=== PATIENT | female | born 1955 | race Caucasian/White ===

== ENCOUNTER 2018-12-04 19:16 | Observation (INO) ==
[2018-12-04] MEDS ORDERED: LOPRESSOR IV ONE (19:48)
[2018-12-04] MEDS ORDERED: ASPIRIN PO ONE (19:48)
[2018-12-04 20:05] LABS: BASO# 0.05 X1000 (0.0-0.2); BASO% 0.4 % (0.0-0.8); EOS# 0.09 X1000 (0.0-0.7); EOS% 0.7 % (0.0-10.0); HEMOGLOBIN 13.9 g/dL (12.0-16.0); IMM GRAN# 0.03 X1000 (0.0-0.04); IMM GRAN% 0.2 % (0.0-0.5); LYMPH% 17.3 % (20.5-51.1); MCH 28.3 PG (27-31); MCHC 33.1 g/dL (33-37); MCV 85.5 FL (81-99); MONO# 0.53 X1000 (0.11-0.59); MONO% 4.2 % (1.7-9.3); MPV 10.6 FL (7.4-10.4); NEUT# 9.82 X1000 (1.4-6.5); NEUT% 77.2 % (42.2-75.2); PLT 223 X1000 (130-400); RBC 4.91 XMIL (4.2-5.4); RDW 12.7 % (11.5-14.5); WBC 12.72 X1000 (4.8-10.8)
--- NOTE | 2018-12-04 20:19 | Diag Imaging Result Doc PS360 ---
EXAM: CHEST-2 VIEWS HISTORY: short of breath TECHNIQUE: Chest two views COMPARISON: None. FINDINGS: The lungs are well expanded. The heart is not enlarged. The vessels are not distended. There are no infiltrates. No pleural effusions. IMPRESSION: No acute abnormality. Electronically signed by Vini Broussard 12/04/2018 8:17 PM
[2018-12-04 20:49] LABS: AGAP 21; ALB/GLOB RATIO 1.6; ALBUMIN 4.9 g/dL (3.5-5.0); ALKALINE PHOSPHATASE 117 U/L (32-104); BUN 10 mg/dL (8-22); CHLORIDE 97 mmol/L (98-107); COSMO 282; CREATININE 0.9 mg/dL (0.5-0.9); ESTIMATED GFR > 60; GLUCOSE 202 mg/dL (70-104); GOT 18 U/L (10-30); GPT 22 U/L (10-36); MAGNESIUM 1.6 mg/dL (1.5-2.7); POTASSIUM 4.2 mmol/L (3.5-5.1); SODIUM 139 mmol/L (136-145); TCO2 21 mmol/L (25-35); TOTAL BILIRUBIN 0.57 mg/dL (0.20-1.00)
[2018-12-04] MEDS ORDERED: ROCEPHIN 1 GM in NS 50 ML IV ONE (22:10)
[2018-12-04] MEDS ORDERED: NS 1,000 ML IV ONE ×2 (22:10→23:19)
[2018-12-04] MEDS ORDERED: ZOFRAN IV ONE (22:26)
[2018-12-04 22:29] LABS: URINE SOURCE CLEAN CATCH
[2018-12-04 22:52] LABS: BILIRUBIN URINE NEGATIVE (NEGATIVE); BLOOD URINE NEGATIVE (NEGATIVE); COLOR YELLOW; GLUCOSE URINE 70 mg/dL (NEGATIVE); KETONE URINE TRACE mg/dL (NEGATIVE); LEUKOCYTES URINE NEGATIVE (NEGATIVE); NITRITE URINE NEGATIVE (NEGATIVE); PH URINE 5.5; PROTEIN URINE NEGATIVE (NEGATIVE); SP GRAVITY URINE 1.002; TURBIDITY URINE CLEAR (CLEAR); UR EPITHELIAL CELLS <10 /HPF (<10); URINE BACTERIA NEGATIVE /HPF; URINE RBC <10 /HPF (<10); URINE WBC <10 /HPF (<10); UROBILINOGEN URINE NORMAL (NORMAL)
[2018-12-04] MEDS ORDERED: NITROGLYCERIN SL PRN (23:12)
[2018-12-04] MEDS ORDERED: ZOFRAN IV PRN (23:12)
[2018-12-04] MEDS ORDERED: TYLENOL PO PRN (23:12)
--- NOTE | 2018-12-04 23:14 | PROVIDER DOCUMENTATION ---
This chart was entered by April East Scribe, acting as scribe for Willie Dominguez MD. HPI-General Adult - General Chief Complaint: Flu Symptoms Stated Complaint: CHEST PAIN Time Seen by Provider: 12/04/18 19:25 Source: patient Allergies/Adverse Reactions: Patient Allergies Allergy/AdvReac Type Severity Reaction Status Date / Time No Known Allergies Allergy Verified 12/04/18 20:14 - History of Present Illness -Gen Adult Nature of Presenting Problems: 62 yof c/o dizzy, nauseated, hot sweat, shaky, mild cough starting this am when waking, cp starting 2 hours ago. pt states cp when occurring is pressure and 4/10. no cp in er. pt denies vomiting, fever, and diarrhea. pt has hx of dm, htn, high cholesterol, Mi x2, 3 stents, and chf. pt followed by Dr. Aleman and Dr. Joaquin. pt took all regular htn meds today. Location of Pain/Injury: reports: chest Pain Radiation: reports: no radiation Quality of Pain: reports: pressure Severity: reports: mild Onset/Duration: reports: unsure Timing: reports: gone now Context/Activities at Onset: reports: none Review of Systems - Adult - REVIEW OF SYSTEMS - ADULT Constitutional: reports: no symptoms reported, other (malaise, hot sweat, shaky.). denies: fever Eyes: reports: no symptoms reported Ears, Nose, Mouth & Throat: reports: no symptoms reported Cardiovascular: reports: see HPI, chest pain (pt states pressure is 4/10 and is no longer present in er). denies: heart murmur, poor circulation, syncope Respiratory: reports: see HPI, cough (slight). denies: dyspnea on exertion, shortness of breath, wheezing Gastrointestinal: reports: see HPI, nausea. denies: abdominal pain, diarrhea, vomiting Genitourinary: reports: no symptoms reported Musculoskeletal: reports: no symptoms reported Integumentary: reports: no symptoms reported Neurological: reports: see HPI, dizziness/vertigo. denies: headache/migraines, seizure, slurred speech Psychiatric: reports: no symptoms reported Endocrine: reports: no symptoms reported Hematologic/Lymphatic: reports: no symptoms reported Allergic/Immunologic: reports: no symptoms reported All Other Systems: Reviewed and Negative Past History - Adult - PAST MEDICAL HISTORY-ADULT Review of Records: reports: Old Records Reviewed, Nursing Assessment Review, Medications Reviewed, Social history reviewed & non-contributory. Major Childhood Illnesses: reports: denies history Cardiovascular: reports: denies history Respiratory: reports: denies history Gastrointestinal: reports: denies history Obstetrical/Gynecological: reports: denies history Genitourinary: reports: denies history Musculoskeletal: reports: denies history Neurological: reports: denies history Endocrine/Immune: reports: denies history Other Conditions: reports: denies history - IMMUNIZATION STATUS Childhood Immunizations: See Nurse Assessment Flu Vaccine: See Nurse Assessment - FAMILY HISTORY Family History: reviewed, not pertinent Physical Exam-General - PHYSICAL EXAM-ADULT Initial Vital Signs Reviewed: Yes - CONSTITUTIONAL General Appearance: alert, mild distress. negative: lethargic, slow to respond, combative - EYES Eyes: PERRL/EOMI - HEAD, EARS, NOSE, MOUTH & THROAT HENMT: normocephalic/atraumatic, moist mucous membranes, normal ENT inspection - NECK Neck: non-tender, full range of motion, supple - RESPIRATORY Respiratory: chest non-tender, lungs clear, normal breath sounds - CARDIOVASCULAR Cardiovascular: normal peripheral pulses, no edema, no gallop, no JVD, no murmur , tachycardia. negative: regular rate, rhythm, JVD, bradycardia - GASTROINTESTINAL (ABDOMEN) Abdominal Exam: normal bowel sounds, non tender, soft. negative: guarding, rigid, rebound - LYMPHATIC Lymphatic: no adenopathy - MUSCULOSKELETAL Back Exam: normal inspection, no CVA tenderness, no vertebral tenderness Extremity: normal range of motion, non-tender, normal inspection Peripheral Pulses: radial (R): 2+, radial (L): 2+ - SKIN Integumentary: normal color, normal turgor, warm/dry - NEUROLOGIC Neurologic: decorative engraver II-XII nml as tested, grossly normal, no motor/sensory deficits - PSYCHIATRIC Psych/Mental Status: normal mood/affect, normal thought content, normal thought process, oriented x 3 Progress - PLAN OF CARE/RESULTS Progress/Plan/Lab Results: Orders Category Date Time Status EKG [EKG] Stat Ther 12/04/18 19:31 Ordered Result Diagrams: 12/04/18 19:37 12/04/18 19:37 - XRAY 1 XRAY: Bilateral XRAY Study: Chest (EXAM: CHEST-2 VIEWS HISTORY: short of breath TECHNIQUE: Chest two views COMPARISON: None. FINDINGS: The lungs are well expanded. The heart is not enlarged. The vessels are not distended. There are no infiltrates. No pleural effusions. IMPRESSION: No acute abnormality. Electronically signed by Vini Broussard 12/04/2018 8:17 PM) Impression: Normal Comparison with other Films: no prior study Departure - Departure Date of Disposition Decision: 12/04/18 Time of Disposition Decision: 23:10 DIAGNOSIS: Malaise and fatigue, Chest pain, Leukocytosis, Elevated lactic acid level DIAGNOSIS: (Ruled Out): Lactic acid acidosis Disposition: ADMITTED INPATIENT 09 Certified Medical Emergency: Emergent Condition: Stable Referrals and Follow-Ups: Jatinder Samano MD [Primary Care Provider] - - Critical Care Note This patient required my direct & personal management of CC.: No Attestation - Physician/ LOURDES Attestation Patient care was provided by Advanced Practice Provider:: No The physician spent face to face time with patient:: Yes Advanced Practice Provider documentation review:: Supervising physician onsite and consulted in the evaluation and care of this patient. The physician did have a face to face encounter with the patient. This chart was documented by the indicated scribe, (April East, Jose) and accurately reflects the services I performed and decisions made by me, Willie Dominguez MD, as attested by the provider's signature.
[2018-12-04] MEDS ORDERED: PROTONIX IV SCH (23:15)
[2018-12-04] MEDS ORDERED: LOVENOX SUBQ SCH (23:15)
[2018-12-04] MEDS ORDERED: SODIUM CHLORIDE 0.9% INJ SCH (23:15)
[2018-12-04] MEDS ORDERED: APRESOLINE IV PRN (23:19)
[2018-12-05 02:30] LABS: MAGNESIUM 1.7 mg/dL (1.5-2.7)
[2018-12-05] MEDS ORDERED: EYE-STREAM SOLUTION BOTH EYES PRN (03:02)
[2018-12-05 03:29] LABS: HEMOGLOBIN A1C 7.6 % (4.8-6.0)
--- NOTE | 2018-12-05 06:02 | HISTORY AND PHYSICAL ---
CHIEF COMPLAINT: Dizziness, high blood pressure, mild chest pain and nausea. HISTORY OF PRESENT ILLNESS: Ms. Barrinetos is a pleasant 62-year-old female who comes in today with a complaint of dizziness. When she checked her blood pressure it was elevated. She also felt hot and sweaty, mildly shaky. She had a mild cough that started today and she had nausea, but no vomiting. Around 2 hours prior to her arrival she started having chest pain with ambulation, 4/10. After coming to the emergency room the chest pain resolved. She denied any vomiting, fever, chills, diarrhea or productive cough. She does have a past medical history that includes coronary artery disease with previous myocardial infarction and stenting x3, as well as congestive heart failure, diabetes mellitus type 2, COPD, hypertension and hyperlipidemia. She will be admitted for further evaluation and treatment. PAST MEDICAL HISTORY: See HPI. PREVIOUS SURGICAL HISTORY: Cardiac stenting x3, hysterectomy. FAMILY HISTORY: Dad had lung and brain cancer. Mother from complications from COPD. SOCIAL HISTORY: Smoked for many years, stopped smoking 5 years ago when she had her heart attack. No alcohol, no illicit drugs. ALLERGIES: No known drug allergies. HOME MEDICATIONS: A list of home medications could not be obtained. The patient knows that she takes Lasix and metoprolol, unknown dosages. Order was placed for Nursing to reconcile home medications with the pharmacy. These can be restarted when appropriate. REVIEW OF SYSTEMS: Fourteen-point review of systems conducted with the patient. Pertinent positives listed above in the HPI. All other systems reviewed and found to be negative. PHYSICAL EXAMINATION: VITAL SIGNS: Temperature 98.1, pulse 95, respirations 13, blood pressure 149/71, oxygen saturation 97% on room air. GENERAL: Pleasant 62-year-old female lying in the ER stretcher. Answers all questions appropriately. She is alert and oriented, in no acute distress. HEENT: Head is atraumatic, normocephalic. Pupils equal, round and reactive to light. Patient is having problems with dry eyes, difficulty opening her eyes. Extraocular eye movements intact. Sclerae are anicteric. Conjunctivae are pink. Oral mucosa is moist. NECK: Supple. No JVD. No thyromegaly. Trachea is midline. No cervical lymphadenopathy. CARDIAC: S1, S2 appreciated. No murmurs, gallops or rubs. LUNGS: Clear to auscultation bilaterally. No rhonchi, wheezes, or rales. Symmetrical rise and fall with respirations. ABDOMEN: Soft, nondistended, nontender. Bowel sounds present in all 4 quadrants, normoactive. No pulsatile mass. No organomegaly. EXTREMITIES: No clubbing, cyanosis or edema. Two-plus pedal pulses bilaterally. NEUROLOGICAL: Alert and oriented x3. Cranial nerves 2-12 grossly intact. GENITOURINARY: No bladder distention. The patient voids, otherwise deferred. SKIN: Warm, dry and intact. No acute lesions or rash. DIAGNOSTIC DATA: Chest x-ray: No infiltrates. No effusions. No pulmonary edema. LABORATORY DATA: WBC 12.72, hemoglobin 13.9, hematocrit 42, platelet count 223,000. Sodium 139, potassium 4.2, chloride 97, carbon dioxide 21, BUN 10, creatinine 0.9, glucose 202. Plasma lactate 2.9. ASSESSMENT AND PLAN: 1. Hypertension, goal to be determined. Unaware of the patient's home medications. She was hypertensive in the emergency room and was given 5 mg IV metoprolol and has come down some. Will add hydralazine to her medication profile p.r.n. until her home medications can be obtained. Will defer to Dr. Jatinder Samano adjustments to home medications as he follows her on an outpatient basis, 2. Chest pain, rule out acute myocardial infarction. Trend cardiac enzymes. These have been negative thus far. Recheck EKG tomorrow morning. 3. Hyperlipidemia. Check a lipid profile. Continue statins when available. 4. Chronic obstructive pulmonary disease with no exacerbation. Continue patient's home regimen of bronchodilators when available. 5. Congestive heart failure. I am unaware if the patient has an echocardiogram on file with Dr. Samano. Will defer ordering of echocardiogram to him. Can restart the patient's home Lasix as she does not appear to be in any type of failure. 6. Diabetes mellitus type 2. Patient states that she takes oral medications. This could be why her lactic acid is elevated if she is on metformin; again, I am unsure. She received a fluid bolus in the emergency room. Will continue gentle fluid hydration with normal saline for the next 12 hours. Further recommendations per the patient's clinical course. Dictated by TOMMIE Virk for Boyd Harry MD cc: TOMMIE Virk MD Timothy P. Weirich, MD
[2018-12-05] MEDS ORDERED: PRILOSEC PO SCH (07:00)
[2018-12-05 07:35] LABS: BASO# 0.05 X1000 (0.0-0.2); BASO% 0.4 % (0.0-0.8); EOS% 0.8 % (0.0-10.0); HEMATOCRIT 37.7 % (37.0-47.0); HEMOGLOBIN 12.4 g/dL (12.0-16.0); IMM GRAN# 0.03 X1000 (0.0-0.04); IMM GRAN% 0.2 % (0.0-0.5); LYMPH# 3.68 X1000 (1.2-3.4); LYMPH% 30.1 % (20.5-51.1); MCH 28.6 PG (27-31); MCHC 32.9 g/dL (33-37); MCV 86.9 FL (81-99); MONO# 0.85 X1000 (0.11-0.59); MPV 10.1 FL (7.4-10.4); NEUT% 61.5 % (42.2-75.2); PLT 256 X1000 (130-400); RBC 4.34 XMIL (4.2-5.4); RDW 12.6 % (11.5-14.5); WBC 12.21 X1000 (4.8-10.8)
--- NOTE | 2018-12-05 07:37 | EKG Report ---
Test Performed on : 12/04/2018 7:26:42 PM Test Reason : chest pain Blood Pressure : / mmHG Vent. Rate : 104 BPM Atrial Rate : 104 BPM P-R Int : 118 ms QRS Dur : 080 ms QT Int : 346 ms P-R-T Axes : 022 -06 019 degrees QTc Int : 454 ms Sinus tachycardia. Low voltage QRS Borderline ECG No previous ECGs available Unconfirmed Result
[2018-12-05 07:44] LABS: AGAP 13; BUN 9 mg/dL (8-22); CALCIUM 9.1 mg/dL (8.8-10.2); CHLORIDE 104 mmol/L (98-107); COSMO 286; CREATININE 0.8 mg/dL (0.5-0.9); ESTIMATED GFR > 60; GLUCOSE 136 mg/dL (70-104); POTASSIUM 4.1 mmol/L (3.5-5.1); SODIUM 143 mmol/L (136-145); TCO2 26 mmol/L (25-35)
[2018-12-05 07:46] VITALS: BP 149/68
--- NOTE | 2018-12-05 08:01 | EKG Report ---
Test Performed on : 12/05/2018 07:49:53 AM Test Reason : cp Blood Pressure : / mmHG Vent. Rate : 084 BPM Atrial Rate : 084 BPM P-R Int : 122 ms QRS Dur : 078 ms QT Int : 396 ms P-R-T Axes : 042 015 033 degrees QTc Int : 467 ms Normal sinus rhythm. Low voltage QRS Borderline ECG When compared with ECG of 04-DEC-2018 19:26, (Unconfirmed) No significant change was found Unconfirmed Result
[2018-12-05] MEDS ORDERED: ASPIRIN PO SCH ×2 (09:00)
[2018-12-05] MEDS ORDERED: PRINIVIL PO SCH (09:00)
[2018-12-05] MEDS ORDERED: TOPROL XL PO SCH (09:00)
[2018-12-05] MEDS ORDERED: GLUCOPHAGE PO SCH (09:30)
[2018-12-05] MEDS ORDERED: LIPITOR PO SCH (21:00)
--- NOTE | 2018-12-05 22:40 | DISCHARGE SUMMARY ---
ADMISSION DATE: 12/05/2018 DISCHARGE DATE: 12/05/2018 DISCHARGE DIAGNOSES: 1. Elevated blood pressure. 2. Chest pain. 3. Chronic ischemic heart disease. 4. Non dependent diabetes mellitus, well controlled. CONSULTATIONS: None. HOSPITAL COURSE: This 62-year-old white female was admitted overnight for observation. She had not been transferred upstairs until the early hours of the morning. When I came in to do rounds in the morning she asked to be discharged and said she was ready. I told her that we needed to get 3 sets of enzymes to make sure that her heart was okay. She agreed to this. The patient initially presented with elevated blood pressure and not feeling well. She then developed chest pain which she characterized as "nothing like my previous heart attacks." She is not short of breath. Initial cardiac enzymes were negative. The patient could not provide the emergency room people with an accurate list of medications that she took which makes me doubt her overall compliance. After 3 negative enzymes, I called the patient and she stated that she was ready to be discharged again. She is discharged home with encouragement to check blood pressure, reconcile her medications, monitor temperature, and call me if there is any anomalies in that regard. She is also due for her annual followup with her reproduction order processor Dr. Joaquin and I encouraged her to set that up immediately. I want the patient to arrange followup with me in 1 week to check on her status and blood pressure control. cc: Jatinder Samano MD
== END 2018-12-05 17:30 | disposition home or self-care (01) ==
LOC: SUPCPDRO → ED 19:16 → 3N 19:16 → SUATTDRO 12-05 00:08
PROVIDERS: ADMIT Internal Medicine; ATTEND Internal Medicine
CPT/HCPCS: 71020; 71046; 80048; 80053; 80061; 81001; 82550; 83036; 83605; 83721; 83735; 83880; 84484; 85025; 85379; 87040; 87275; 87276; 87804; 93005; 93010; 94761; 96365; 96366; 96375; 99285; A9270; J0696; J2405; J7030